=== PATIENT | female | born 1990 | race Caucasian/White ===

== ENCOUNTER → 2022-11-13 07:56 | Outpatient (CLI) | payer OTHER, SELFPAY ==
--- NOTE | 2022-11-13 | DI.ECHO.S_ITS ---
[facility] +---------+ : : [address] : [address] : : : : [id number] : : : : Phone: [phone]---------+ Echocardiogram Report + + :Name: ERNESTO PELAYO Study Date: 11/13/2022 Height: 58 in : :[facility] ReadingLocation: Weight: 166 lb : : Gender: Female BSA: 1.7 m2 : :: 1990 Age: 32 yrs BP: 110/72 mmHg: :Reason For Study: MITRAL INSUFFICIENCY : :Ordering Physician: ARMAAN, : :JASSI Performed By: Esha Corrales : :Referring: JASSI CROOK : + + Interpretation Summary The ejection fraction is estimated to be 55-60%. Diastolic parameters suggest probable normal left ventricular diastolic function and normal filling pressures. The right ventricle is normal in size and function. There is mild mitral regurgitation. Pulmonary artery pressures cannot be estimated because of the lack of a measurable TR jet velocity but the IVC suggests a CVP of around 3 mmHg. Procedure: A two-dimensional transthoracic echocardiogram with color flow and Doppler was performed. The study quality was technically adequate. There is no prior echocardiogram noted for this patient. The patient was in sinus rhythm with heart rates between 65-78 bpm during the exam. Left Ventricle: The left ventricle is normal in size and wall thickness. The ejection fraction is estimated to be 55-60%. Diastolic parameters suggest probable normal left ventricular diastolic function and normal filling pressures. Right Ventricle: The right ventricle is normal in size and function. Atria: The left atrial size is normal. Right atrial size is normal. There is no Doppler evidence for an interatrial shunt. Mitral Valve: The mitral valve leaflets appear normal. There is no evidence of stenosis, fluttering, or prolapse. There is mild mitral regurgitation. Aortic Valve: The aortic valve is trileaflet. The aortic valve opens well. There is no aortic valve stenosis. No aortic regurgitation is present. Tricuspid Valve: The tricuspid valve is normal in structure and function. There is a trace or physiologic amount of tricuspid regurgitation. Pulmonary artery pressures cannot be estimated because of the lack of a measurable TR jet velocity but the IVC suggests a CVP of around 3 mmHg. Pulmonic Valve: The pulmonic valve leaflets are thin and pliable; valve motion is normal. There is mild pulmonic regurgitation. Great Vessels: The aortic root is normal size. The dimensions of the ascending aorta are normal. The IVC is of normal diameter and collapses greater than 50% with a sniff. This suggests a low right atrial pressure of 3 mm Hg. Pericardium/ Pleura There is no pericardial effusion. There is no pleural effusion. MMode/2D Measurements & Calculations LVIDd: 5.1 cm LVOT diam: 2.0 cm LVIDs: 3.1 cm Ao root diam: 2.5 cm FS: 40.1 % asc Aorta Diam: 2.3 cm EPSS: 0.78 cm Ao Arch Diam (Prox Trans): 2.1 cm IVSd: 0.65 cm LVPWd: 0.58 cm LV amor. diameter/BSA (cm/m^2): 3.1 LV sys. diameter/BSA (cm/m^2): 1.8 LA A2 area: 16.5 cm2 RA long axis: 4.4 cm LA A4 area: 11.8 cm2 RA area: 11.3 cm2 LA length (vol): 4.5 cm RA vol: 24.9 ml LA vol: 36.8 ml RA : 14.8 ml/m2 LA vol index: 21.9 ml/m2 IVC diam: 1.2 cm RVD1 (basal): 3.6 cm TAPSE: 2.1 cm Doppler Measurements & Calculations Ao V2 max: 133.8 cm/sec LVOT Max Zane: 89.0 cm/sec Ao V2 mean: 99.0 cm/sec LV V1 max P.2 mmHg Ao max P.2 mmHg LV V1 VTI: 19.4 cm Ao mean P.4 mmHg HARLEY(I,D): 1.9 cm2 Ao V2 VTI: 30.5 cm HARLEY(V,D): 2.0 cm2 sev ratio: 0.63 HARLEY indexed to BSA (cm^2/m^2): 1.1 MV E max zane: 99.9 cm/sec TR max zane: 202.7 cm/sec MV A max zane: 66.4 cm/sec TR max P.4 mmHg MV E/A: 1.5 PA V2 max: 137.4 cm/sec Med Peak E' Zane: 10.3 cm/sec PA V2 mean: 79.3 cm/sec E/E' med: 9.7 PA mean P.1 mmHg Lat Peak E' Zane: 13.6 cm/sec PA pr(Accel): 37.9 mmHg E/E' lat: 7.4 E/e' average: 8.5 MV dec time: 0.15 sec SV(LVOT): 58.2 ml Reading Physician:03:10 PM
== END ==
PROVIDERS: Referring Provider Registered Nurse; Visit Provider Registered Nurse
DX: I34.0 Nonrheumatic mitral (valve) insufficiency (principal); I37.1 Nonrheumatic pulmonary valve insufficiency
CPT/HCPCS: 93306

== ENCOUNTER → 2022-12-27 07:49 | Outpatient (CLI) | payer OTHER, SELFPAY ==
--- NOTE | 2022-12-28 10:51 | DI.NM.S_ITS ---
DATE OF SERVICE: 12/27/2022 PROCEDURE: Exercise treadmill stress test without imaging. ORDERING PROVIDER: DELORES Shaikh INDICATIONS: The patient is a 32-year-old female with exertional dyspnea and occasional atypical chest discomfort. FINDINGS: 1. The patient was able to exercise for 9 minutes and 44 seconds on the standard P[place] protocol suggesting average exercise capacity with an KRISH of 0%, achieving 10.1 METS. 2. She had a somewhat accelerated heart rate response to exercise with a resting heart rate of 90 to 105 BPM, increasing to 132 BPM after 1 minute of exercise and achieving a maximum heart rate of 191 BPM (102% of her predicted maximum) at peak exercise. She had a normal blood pressure response. Oxygen saturation remained greater than 96% throughout the study. 3. She had no chest discomfort or other anginal symptoms. 4. Her resting ECG showed sinus rhythm and sinus tachycardia but normal ST segments. There were no significant ST-segment shifts or arrhythmias with stress. IMPRESSION: 1. Normal exercise treadmill stress test for ischemia. 2. Average exercise capacity with a mildly accentuated heart rate response to exercise, suggesting possible reduced cardiovascular fitness. There were no arrhythmias. Zee Curry - SHYANN/elma/DANIEL doc#: [id number]/job#: [id number] dd: 12/27/2022 16:47:00 dt: 12/27/2022 23:57:00 DICTATING /COPIES TO: Slao Coles MD; DELORES Shaikh COPIES MNE: DESMOND;
== END ==
PROVIDERS: PCP Registered Nurse; Referring Provider Registered Nurse; Visit Provider Registered Nurse
DX: R06.09 Other forms of dyspnea (principal); R07.89 Other chest pain
CPT/HCPCS: 93017

== ENCOUNTER → 2023-01-25 06:47 | Outpatient (CLI) | payer OTHER, SELFPAY | PROVIDERS: PCP Registered Nurse; Referring Provider Registered Nurse; Visit Provider Registered Nurse | DX: R06.09 Other forms of dyspnea (principal) | CPT/HCPCS: 94060; 94726; 94729 ==